=== PATIENT | male | born 1945 | race Hispanic/Latino ===

== ENCOUNTER 2017-03-09 20:51 | Emergency (ER) | payer MEDICARE ==
[2017-03-09 21:44] LABS: Basophils % (Auto) 0.3 % (0.0-1.8); Eosinophils % (Auto) 0.4 % (0.0-4.3); Mean Corpuscular HGB Conc 32 % (32-34); Mean Corpuscular Hemoglobin 29 pg (28-32); Mean Corpuscular Volume 89 fl (84-94); Platelet Count 195 K/mm3 (140-440); White Blood Count 9.3 K/mm3 (4.5-11.0)
[2017-03-09 21:45] LABS: Red Cell Distribution Width 24.6 % (13.2-15.2)
[2017-03-09 21:47] LABS: Hematocrit 17.7 % (35.5-45.6); Hemoglobin 5.7 gm/dl (11.8-15.2)
[2017-03-09] MEDS ORDERED: NACL 0.9% 500 ML 500 ML IV ONE (22:02)
[2017-03-09] MEDS ORDERED: PROTONIX IV ONE (22:04)
--- NOTE | 2017-03-09 22:04 | Emergency Department Report ---
ED General Adult HPI - General Chief complaint: Recheck/Abnormal Lab/Rx Stated complaint: INTERNAL BLEEDING Time Seen by Provider: 03/09/17 21:50 Source: patient Mode of arrival: Wheelchair Limitations: No Limitations - History of Present Illness Initial comments: This is a 71-year-old gentleman who was just admitted to the hospital due to CHF /COPD exacerbation. He noted to have A. fib while he was in the hospital. He was started on Paige Katarina. Patient did have a primary follow-up today. He did have routine blood work done. He received a call from his physician or go to the ED due to low blood levels. He presents today for this reason. He does report ongoing dyspnea. States that since going home he still does not feel that he can catch his breath. He is not on home oxygen. He denies noting any dark stools. He states he's had problems with lower GI bleeds in the past. He has been told that the small bowel. He's had upper and lower endoscopies. He states he's had an M2A camera as well. The thought is that he likely has an area of his small bowel that is the source for bleeding. Patient denies any chest pain. He states his pedal edema is about at its baseline. He he does report feeling weak in general. States that this is only minimally worse than when he was discharged from the hospital. Severity scale (0 -10): 0 - Related Data Home Medications Medication Instructions Recorded Confirmed Last Taken Citalopram [celeXA] 20 mg PO QDAY 02/21/17 02/24/17 02/21/17 09:00 Fluticasone [Flonase] 1 spray NS QDAY 02/21/17 02/24/17 02/10/17 18:00 Loratadine 10 mg PO Q12H PRN 02/21/17 02/24/17 02/21/17 09:00 Multivitamin with Iron 1 each PO DAILY 02/21/17 02/24/17 02/21/17 09:00 [Multivitamins with Iron] Omeprazole 20 mg PO DAILY 02/21/17 02/24/17 02/21/17 09:00 Tadalafil [Cialis] 20 mg PO Q36H 02/21/17 02/24/17 02/09/17 18:00 amLODIPine [Norvasc] 10 mg PO DAILY 02/21/17 02/24/17 02/13/17 09:00 Allergies Allergy/AdvReac Type Severity Reaction Status Date / Time No Known Allergies Allergy Verified 02/21/17 13:11 ED Review of Systems ROS: Stated complaint: INTERNAL BLEEDING Other details as noted in HPI Comment: All other systems reviewed and negative Constitutional: weakness. denies: chills, fever Eyes: denies: eye pain, eye discharge, vision change ENT: denies: ear pain, throat pain Respiratory: shortness of breath, SOB with exertion. denies: cough, wheezing Cardiovascular: denies: chest pain, palpitations Endocrine: no symptoms reported Gastrointestinal: denies: abdominal pain, nausea, diarrhea, hematemesis, hematochezia Genitourinary: denies: urgency, dysuria Musculoskeletal: denies: back pain, joint swelling, arthralgia Skin: denies: rash, lesions Neurological: denies: headache, weakness, paresthesias Psychiatric: denies: anxiety, depression Hematological/Lymphatic: denies: easy bleeding, easy bruising ED Past Medical Hx - Past Medical History Previous Medical History?: Yes Hx COPD: Yes Additional medical history: Iron dif. anemia, Calcification of liver, elevated psa, gi bleed - Surgical History Past Surgical History?: No - Social History Smoking Status: Current Every Day Smoker Substance Use Type: Alcohol - Medications Home Medications: Home Medications Medication Instructions Recorded Confirmed Last Taken Type Citalopram [celeXA] 20 mg PO QDAY 02/21/17 02/24/17 02/21/17 09:00 History Fluticasone [Flonase] 1 spray NS QDAY 02/21/17 02/24/17 02/10/17 18:00 History Loratadine 10 mg PO Q12H PRN 02/21/17 02/24/17 02/21/17 09:00 History Multivitamin with Iron 1 each PO DAILY 02/21/17 02/24/17 02/21/17 09:00 History [Multivitamins with Iron] Omeprazole 20 mg PO DAILY 02/21/17 02/24/17 02/21/17 09:00 History Tadalafil [Cialis] 20 mg PO Q36H 02/21/17 02/24/17 02/09/17 18:00 History amLODIPine [Norvasc] 10 mg PO DAILY 02/21/17 02/24/17 02/13/17 09:00 History ED Physical Exam - General Limitations: No Limitations General appearance: alert, in distress - Head Head exam: Present: atraumatic, normocephalic - Eye Eye exam: Present: normal appearance, EOMI. Absent: scleral icterus (due to dyspnea.) - ENT ENT exam: Present: normal exam, normal orophraynx, mucous membranes moist - Neck Neck exam: Present: normal inspection, full ROM. Absent: tenderness, lymphadenopathy - Respiratory Respiratory exam: Present: decreased breath sounds (diffusely. Mild). Absent: respiratory distress - Cardiovascular Cardiovascular Exam: Present: normal rhythm, tachycardia. Absent: systolic murmur, diastolic murmur, rubs, gallop - GI/Abdominal GI/Abdominal exam: Present: soft, normal bowel sounds. Absent: distended, tenderness - Rectal Rectal exam: Present: deferred, heme (+) stool, other (dark tarry stool noted.) - Extremities Exam Extremities exam: Present: normal inspection, pedal edema (3+. Distal pedal pulses are palpable.). Absent: tenderness, calf tenderness - Back Exam Back exam: Present: normal inspection, full ROM. Absent: CVA tenderness (R), CVA tenderness (L) - Neurological Exam Neurological exam: Present: alert, oriented X3 - Psychiatric Psychiatric exam: Present: normal affect, normal mood - Skin Skin exam: Present: warm, dry, intact, normal color. Absent: rash ED Course Vital Signs 03/09/17 03/09/17 03/10/17 21:21 23:27 00:35 Temperature 98.5 F 98.0 F 97.8 F Pulse Rate 106 H 94 H 91 H Respiratory 18 12 12 Rate Blood Pressure 97/53 107/60 Blood Pressure 108/59 [Right] O2 Sat by Pulse 97 98 Oximetry 03/10/17 03/10/17 03/10/17 00:53 01:23 01:55 Temperature 97.8 F 98.1 F 98.3 F Pulse Rate 91 H 64 90 Respiratory 12 12 12 Rate Blood Pressure 114/65 108/74 119/63 Blood Pressure [Right] O2 Sat by Pulse 98 Oximetry - Reevaluation(s) Reevaluation #1: 03/10/17 05:50 Patient's hemoglobin here was noted to be 5.7. He clearly has dark stool on evaluation. I did indicate to the patient that they're appropriate treatment for him would be admission to the hospital for continued evaluation and blood products. He was unwilling to be admitted to the hospital. He did indicate he is willing to stay to get a couple units of blood. This was performed. He subjectively felt improved after blood products. He was placed on Paige Katarina due to his atrial fibrillation. I did indicate to him that he will have to stop this medication. I did encourage him to follow up with his doctor to discuss if there are other medications he could be on to help prevent his risk for embolism. I also indicated the patient that I'm not totally clear whether he is still actively bleeding or not. I doubt as he has not had any bowel movements here and hemodynamically remained stable here. Frankly his blood pressure has been fine here. He is dyspneic when he gets up and ambulates but he states this is his baseline. He does have an underlying history of COPD as well as CHF. I did reiterate to the patient that the approach she is taking to this is not routine nor typical. And did again give him the opportunity to stay in the hospital. He declined. He does agree to again follow up with his primary physician tomorrow. I feel he is reliable for this as he sized physician just yesterday. I did instruct him to follow-up for a repeat hemoglobin study as well. ED Medical Decision Making - Lab Data Result diagrams: 03/09/17 21:34 03/09/17 21:34 Critical care attestation.: If time is entered above; I have spent that time in minutes in the direct care of this critically ill patient, excluding procedure time. ED Disposition Clinical Impression: GI bleed Qualifiers: GI bleed type/associated pathology: unspecified gastrointestinal hemorrhage type Qualified Code(s): K92.2 - Gastrointestinal hemorrhage, unspecified Disposition: DISCHARGED TO HOME OR SELFCARE Is pt being admited?: No Does the pt Need Aspirin: No Condition: Stable Additional Instructions: You received 2 units of blood tonight. Stop your Eliquis. Discuss with your doctor other options to protect against stroke due to your atrial fibrillation. You will need to see your doctor today and f/u for repeat hemoglobin levels to determine whether you will need more blood. Return to the ED immediately if you are noticing blood by rectum or you are becoming lightheaded. Time of Disposition: 02:15
[2017-03-09 22:34] LABS: Alanine Aminotransferase 31 units/L (7-56); Albumin 2.8 g/dL (3.9-5); Albumin/Globulin Ratio 1.4 %; Alkaline Phosphatase 96 units/L (35-129); Anion Gap 21 mmol/L; BUN/Creatinine Ratio 36.25; Blood Urea Nitrogen 29 mg/dL (9-20); Calcium 8.2 mg/dL (8.4-10.2); Carbon Dioxide 20 mmol/L (22-30); Chloride 94.7 mmol/L (98-107); Glucose 101 mg/dL (75-100); Potassium 4.3 mmol/L (3.6-5.0); Sodium 131 mmol/L (137-145); Total Protein 4.8 g/dL (6.3-8.2)
[2017-03-09 23:33] LABS: INR 1.52 (0.87-1.13)
[2017-03-10 03:00] VITALS: BP 103/43
== END 2017-03-10 03:21 | disposition home or self-care (01) ==
LOC: ED 20:51
DX: K92.2 Gastrointestinal hemorrhage, unspecified (principal); J44.9 Chronic obstructive pulmonary disease, unspecified; D64.9 Anemia, unspecified; F17.200 Nicotine dependence, unspecified, uncomplicated
CPT/HCPCS: 36415; 36430; 80053; 83880; 84484; 85025; 85610; 86850; 86900; 86901; 86920; 96361; 96374; 99283; C9113; J7040; P9016